=== PATIENT | male | born 1995 | race Caucasian/White ===

== ENCOUNTER 2017-04-15 02:35 | Observation (INO) | payer OTHER ==
[~2017-04-15] VITALS: Ht 182.9 cm; Wt 119.2 kg
[~2017-04-15 02:35] MED LIST: AUGMENTIN875 MG PO; FLOVENT DISKUS1 DIS1 IH; PREDNISONE10 MG PO; PROAIR HFA8.5 GM IH; PROVENTIL,2.5 MG/3 M IH
[2017-04-15 02:59] LABS: BASE EXCESS -1.8 mEq/L (-3 to +3); BICARBONATE 23.7 mEq/L (22-26); CARBOXY HGB 1.4 % (0-5); COMMENTS - BLOOD GASES C+A+; DEVICE NEBULIZER; METHEMOGLOBIN 1.3 % (0-1.5); O2 FLOW 8 L/MIN; PCO2 42 mm Hg (35-45); PO2 133 mm Hg (80-100); SITE RR; pH 7.36 (7.35-7.45)
[2017-04-15 03:16] LABS: HEMATOCRIT 46.3 % (38.0-50.0); MCH 29.4 PG (29.0-34.0); MCHC 34.8 G/DL (30.0-36.0); MCV 84.5 FL (86-99); MEAN PLAT.VOLUME 10.2 uM^3 (9.0-12.4); PLATELET COUNT 190 K/uL (156-360); RBC DIS.WIDTH-CV 11.8 % (11.8-14.6); RBC DIS.WIDTH-SD 36.3 % (39-53); RED BLOOD COUNT 5.48 M/uL (4.00-5.50); WHITE BLOOD COUNT 13.7 K/uL (4.1-10.2)
[2017-04-15 03:30] LABS: CHLORIDE 104 mEq/L (99-109); POTASSIUM 3.5 mEq/L (3.7-5.4); SODIUM 139 mEq/L (136-147)
[2017-04-15 03:31] LABS: GLUCOSE 159 mg/dL (70-99)
[2017-04-15 03:33] LABS: ANION GAP 13 MEQ/L (2-14)
[2017-04-15 03:35] LABS: GFR ESTIMATE (CALCULATED) > 59 mL/min/
[2017-04-15 03:36] LABS: UREA NITROGEN (BUN) 14 mg/dL (9-23)
[2017-04-15 05:37] VITALS: BP 133/63
[2017-04-15 05:41] LABS: ADD MIUA? NO; BILIRUBIN NEGATIVE; BLOOD NEGATIVE; COLOR YELLOW ((YELLOW)); GLUCOSE (STRIP) 50; KETONES NEGATIVE; LEUKOCYTES NEGATIVE; NITRITE NEGATIVE; PROTEIN (STRIP) NEGATIVE; UCUL ADDED? NO; UROBILINOGEN 0.2 MG/DL (0.2-1.0)
[2017-04-15 06:49] LABS: THC CANNABINOIDS PRESUMPTIVE POSITIVE (50 ng/mL)
[2017-04-15 06:50] LABS: ADD MEDTOX COMMENT Y; AMPHETAMINE NEGATIVE (500 ng/mL); BARBITURATES NEGATIVE (200 ng/mL); BENZODIAZEPINES NEGATIVE (150 ng/mL); COCAINE NEGATIVE (150 ng/mL); INTERNAL CONTROLS VALID? YES; METHADONE NEGATIVE (200 ng/mL); METHAMPHETAMINE NEGATIVE (500 ng/mL); OPIATES (MORPHINE) NEGATIVE (100 ng/mL); OXYCODONE NEGATIVE (100 ng/mL); PHENCYCLIDINE NEGATIVE (25 ng/mL); PROPOXYPHENE NEGATIVE (300 ng/mL); TRICYCLIC ANTIDEPRESSANTS NEGATIVE (300 ng/mL)
[2017-04-15 08:24] LABS: POINT-OF-CARE METER ID UU13113700
[2017-04-15 08:50] VITALS: BP 135/58
[2017-04-15] MEDS ORDERED: PREDNISONE10 M1 PO ×2 (10:40→11:28)
[2017-04-15] MEDS ORDERED: ADVAIR HFA120 INHALA IH ×2 (10:40→11:28)
[2017-04-15] MEDS ORDERED: BENZONATATE100 MG PO ×2 (10:40→11:28)
[2017-04-15] MEDS ORDERED: ZITHROMAX500 MG PO (11:26)
== END 2017-04-15 12:20 | disposition home or self-care (01) ==
LOC: EME → EDBD 02:35 → EME 02:35 → EDOF 04:41 → ENRESERV 04:42 → 5WEST 05:36
PROVIDERS: Hospitalist; Physician Assistant; Physician Assistant Medical
DX: J45.901 Unspecified asthma with (acute) exacerbation (principal); J96.01 Acute respiratory failure with hypoxia; Z77.22 Contact with and (suspected) exposure to environmental tobacco smoke (acute) (chronic); Z87.891 Personal history of nicotine dependence; E66.9 Obesity, unspecified; Z68.34 Body mass index [BMI] 34.0-34.9, adult; R73.9 Hyperglycemia, unspecified
CPT/HCPCS: 36600; 71010; 80048; 81003; 82803; 82948; 84999; 85027; 94640; 94640 76; 94644; 94760; 99281; 99285; G0378; J0171; J1100; J1815; J2930; J3475; J7030; J7644